=== PATIENT | male | born 1975 | race Caucasian/White ===

== ENCOUNTER 2018-10-15 22:14 | Inpatient (IN) | payer BC ==
[~2018-10-15 22:14] MED LIST: ISOVUE-370 76%-LOCM 1 ML ONE
[2018-10-15] MEDS ORDERED: HYDROcodone/Acetaminophen 10/325 mg Tablet ONE (23:11)
--- NOTE | 2018-10-15 23:44 | CT ---
EXAM: CT Pelvis W Con PROVIDED CLINICAL HISTORY: Left scrotal abscess. COMPARISON: None FINDINGS: There is prominent skin thickening and edema involving the left aspect of the scrotum. There is a pun ctate focus of gas seen in the region of the edematous changes of the left aspect of the scrotum.. Inflammatory changes are seen extending superiorly to the the base of the penis within the subcutaneo us fat as well as a superior to the level of the scrotum on the left.. There is suggestion of a small right hydrocele. No discrete fluid collection is identified. Urinary bladder has a normal CT appearance. The appendix is visualized and normal in caliber. No free fluid is seen in the pelvis. There is no evidence of lymphadenopathy. The osseous structures have a normal CT appearance. IMPRESSION: Infectious/inflammatory process involving the left aspect of the scrotum with scrotal thickening and edema. There is a punctate focus of gas seen in the region of the edema left aspect of the scrotum. Punctate focus of gas secondary to gas-forming organism cannot be entirely excluded. However, finding s were discussed with Dr. Jaramillo in the emergency department, and this focus of gas could potentially be iatrogenic as the tissues of the left aspect of the scrotum were anesthetized at [facility] which could potentially account for focus of gas. Clinical correlation suggested. The findings discussed Dr. Jaramillo in the emergency department on 10/15/2018 at 2338 hours.
[2018-10-16] MEDS ORDERED: Acetaminophen 325 MG TAB PO PRN ×2 (01:19→07:19)
[2018-10-16] MEDS ORDERED: HYDROcodone/Acetaminophen 5/325 mg Tablet PO PRN ×2 (01:19)
[2018-10-16] MEDS ORDERED: Sodium Chloride 0.9% 1,000 ML IV SCH (01:19)
[2018-10-16 01:40] VITALS: BMI 40.4
[2018-10-16] MEDS ORDERED: Piperacillin/Tazobactam 3.375 GM in Sodium Chloride 0.9% 100 ML IVPB SCH (05:00)
[2018-10-16] MEDS ORDERED: Vancomycin HCl 1 GM in Premix Bag 1 BAG IVPB SCH (05:00)
[2018-10-16] MEDS ORDERED: Ondansetron PF 4 MG/2 ML Vial IVP PRN (05:08)
[2018-10-16] MEDS ORDERED: Ondansetron ODT 4 MG TAB PO PRN (05:08)
[2018-10-16] MEDS ORDERED: Ketorolac Tromethamine 30 MG/ML VIAL IVP SCH (05:15)
[2018-10-16] MEDS: Vancomycin HCl 1.5 GM in Sodium Chloride 0.9% 250 ML 300 ML IVPB SCH ×3 (05:33→22:27)
[2018-10-16] MEDS ORDERED: Eucerin (Mineral Oil/Petrolatum,White) 30 gm Jar TOP PRN (07:19)
[2018-10-16] MEDS ORDERED: Sodium Chloride 0.65% Nasal 44 ML BOT EA NARE PRN (07:19)
[2018-10-16] MEDS ORDERED: Cepastat Lozenges 1 LOZ PO PRN (07:19)
[2018-10-16] MEDS ORDERED: Zolpidem Tartrate 5 MG TAB PO PRN (07:19)
[2018-10-16] MEDS ORDERED: Calcium Carbonate 500 MG ChewTAB PO PRN (07:19)
[2018-10-16] MEDS ORDERED: Loperamide HCl 2 MG CAP PO PRN (07:19)
[2018-10-16] MEDS ORDERED: Senokot S 8.6-50 MG TAB PO PRN (07:19)
[2018-10-16] MEDS ORDERED: Artificial Tears 18 DROP/0.9 ML EA EYE PRN (07:19)
[2018-10-16] MEDS ORDERED: Diabetic Tussin 200 MG/10 ML UDCUP PO PRN (07:19)
[2018-10-16] MEDS ORDERED: Bisacodyl 10 MG SUPP PR PRN (07:19)
[2018-10-16] MEDS ORDERED: hydrALAZINE 20 MG/ML VIAL SLOW IVP PRN (07:19)
[2018-10-16] MEDS ORDERED: Loratadine 10 MG TAB PO PRN (07:19)
[2018-10-16] MEDS: Enoxaparin Sodium 40 MG/0.4 ML SYRINGE SC SCH (08:31)
[2018-10-16] MEDS: busPIRone HCl 10 MG TAB PO SCH (08:32)
[2018-10-16] MEDS: CeleCOXIB 100 MG CAP PO SCH (08:32)
[2018-10-16] MEDS: FLUoxetine HCl 20 MG CAP PO SCH (08:32)
[2018-10-16] MEDS: Saccharomyces boulardii 250 MG CAP PO SCH (08:32)
[2018-10-16] MEDS: HYDROcodone/Acetaminophen 5/325 mg Tablet PO PRN ×2 (08:36→21:24)
[2018-10-16] MEDS ORDERED: CELECOXIB PO SCH (09:00)
[2018-10-16] MEDS ORDERED: busPIRone HCl 10 MG TAB PO SCH (09:00)
[2018-10-16] MEDS ORDERED: Famotidine 20 MG TAB PO SCH (09:00)
[2018-10-16] MEDS ORDERED: PHENTERMINE HCL PO SCH (09:00)
[2018-10-16] MEDS ORDERED: PHENTERMINE HCL 37.5 MG PO SCH (09:00)
--- NOTE | 2018-10-16 11:33 | HP ---
PRIMARY CARE PHYSICIAN: [facility] Call admission. REASON FOR ADMISSION: Scrotal cellulitis with abscess. HISTORY OF PRESENT ILLNESS: A 43-year-old male, who has underlying history of obesity, anxiety and depression, as well as gastroesophageal reflux disease, who was earlier evaluated at [facility] and subsequently, he was transferred to our emergency room for evaluation and treatment of scrotal cellulitis and abscess. This patient reports that because of his job, he gets perspiration in scrotal area and he gets intermittently itching in scrotal skin. He had scratched in past and subsequently, he noticed that in the scrotal area, couple of spot was getting hard and harder, and it was becoming more red and tender. He was also feeling chills and fever. These symptoms are going on for last 3 days, but he has itching in scrotal area for a period of time. He also gets itching from his dress, which he has to wear from [employer] in his abdomen area as well. At [facility], the patient was given trial of a needle aspiration of abscess, but without any success and subsequently, he was transferred to our emergency room. He had CT pelvis, which showed scrotal thickening and edema, and there was punctate focus of gas in the region of edema, which was attributed most likely from needle, which was inserted at [facility] without any drainage. At [facility], he was given Tylenol 1 g, vancomycin, Zosyn, and Toradol. Subsequently, he was sent to our emergency room for evaluation and treatment. The patient was meeting sepsis criteria with tachycardia, fever and leukocytosis. He had blood culture done. REVIEW OF SYSTEMS: CONSTITUTIONAL: Negative for weight loss or gain, ability to conduct usual activities. SKIN: Negative for rash, itching. EYES: Negative for double vision, pain. ENT/MOUTH: Negative for nose bleeding, neck stiffness, pain, tenderness. CARDIOVASCULAR: Negative for palpitations, dyspnea on exertion, orthopnea. RESPIRATORY: Negative for shortness of breath, wheezing, cough, hemoptysis, fever or night sweats. GASTROINTESTINAL: Negative for poor appetite, abdominal pain, heartburn, nausea, vomiting, constipation, or diarrhea. GENITOURINARY: Negative for urgency, frequency, dysuria, nocturia. MUSCULOSKELETAL: Negative for pain, swelling. NEUROLOGIC/PSYCHIATRIC: Negative for anxiety, depression. ALLERGY/IMMUNOLOGIC: Negative for skin rash, bleeding tendency. Please see my HPI for pertinent positives and negatives. All other review of systems reviewed and negative, except as mentioned in HPI. PAST MEDICAL HISTORY: Morbid obesity, osteoarthritis, sleep apnea, gastroesophageal reflux disease. PAST PSYCHIATRIC HISTORY: Anxiety and depression. PAST SURGICAL HISTORY: Left ankle surgery, cholecystectomy, tonsillectomy, appendicectomy, bilateral ear tube placement in childhood. SOCIAL HISTORY: The patient is by profession in [place]. He is . He does not have any tobacco, alcohol, or illicit drug abuse history. FAMILY HISTORY: No strong family history of premature coronary artery disease, stroke, or cancer. ALLERGIES: THE PATIENT IS ALLERGIC TO MORPHINE, WHICH GIVES HIVES. CURRENT HOME MEDICATION: 1. Celecoxib 200 mg daily. 2. Omeprazole 40 mg daily. 3. Buspirone 10 mg daily. 4. Prozac 20 mg daily. 5. Phentermine 37.5 mg daily. EMERGENCY ROOM COURSE: The patient is given Tylenol 1 g, vancomycin, Zosyn, and Toradol. PHYSICAL EXAMINATION: VITAL SIGNS: Currently, blood pressure 159/90, pulse 100, temperature 100.7, saturation 96% on room air, respiration 18. Weight 136 kg. GENERAL: The patient is currently alert, awake. No obvious acute distress. HEENT: Head; normocephalic, atraumatic. Eyes; pupils round, reactive to light. Extraocular muscle intact. ENT; oropharynx within normal limits. Moist mucous membranes. No oral lesion. No pharyngeal erythema. No exudate. NECK: Supple. No JVD. No thyromegaly. No carotid bruit. No jugular venous distention. LUNGS: Clear to auscultation without any rhonchi or rales. CARDIAC: S1, S2 regular. No murmur. No gallop. No rub. ABDOMEN: Morbid obesity present. Bowel sounds present. Nontender. Nondistended. No organomegaly. No mass. No suprapubic tenderness. BACK EXAMINATION: Unremarkable. No CVA tenderness. GENITOURINARY EXAMINATION: Left side of upper scrotum has at least 5 x 5 cm area of induration as well as the patient also has another about 2 x 2 cm induration in inguinal fold. This patient's testicle is swollen, erythematous, and tender. EXTREMITIES: Lower extremities, no edema. Good distal pulsation. Upper extremities, within normal limits. SKIN: No skin rash. HEMATOLOGICAL SYSTEM: No lymphadenopathy. NEUROLOGIC: Nonfocal examination. The patient does have mild folliculitis as well as erythema in suprapubic area, which is related with his belt. SIGNIFICANT LABORATORY DATA: CBC; WBC 11.7, hemoglobin 13.1, platelet 125 with left shift. BMP; sodium 137, potassium 4.0, chloride 105, carbon dioxide 23, anion gap 13, BUN 17, creatinine 1.01, glucose 111, and calcium 9.2. Lactic acid 1.1. LFT; AST 18, ALT 19, alkaline phosphatase 60, and albumin 4.0. CT pelvis showing infectious inflammatory process involving left aspect of scrotum with scrotal thickening and edema. Punctate focus of gas seen in the region of edema on the left aspect of the scrotum. IMPRESSION: 1. Sepsis secondary to soft tissue infection related with scrotal cellulitis and abscess. 2. Scrotal cellulitis with abscess in view of chronic itching in scrotal area from possibly allergic reaction. 3. Contact dermatitis. 4. Thrombocytopenia and leukocytosis, tachycardia related with sepsis. 5. Morbid obesity with body mass index of 40. 6. Anxiety and depression. 7. Gastroesophageal reflux disease. PLAN: 1. Admission to medical floor. Continue IV fluid as ordered. Continue empiric antibiotic therapy with vancomycin and Zosyn. Control pain with Toradol p.r.n. basis. Urology consultation for evaluation, less likely to be Dayo's gangrene, but we will get expert opinion. Scrotum elevation advised. His home medication reconciled. We will repeat labs tomorrow. Monitor Vanco trough level and renal function. 2. Deep venous thrombosis prophylaxis with Lovenox 40 mg subcu daily. 3. Gastrointestinal prophylaxis with Protonix 40 mg p.o. daily. CODE STATUS: The patient is full code. The patient's is surrogate decision maker. DISPOSITION PLAN: Based on clinical course, we are expecting the patient's stay in hospital more than 2 midnights. Plan of care discussed with the patient and his . Job ID: [id number]
[2018-10-16] MEDS: Piperacillin/Tazobactam 3.375 GM in Sodium Chloride 0.9% 100 ML IVPB SCH ×2 (11:38→17:33)
[2018-10-16] MEDS: Sodium Chloride 0.9% 1,000 ML IV SCH ×2 (11:39→21:24)
[2018-10-16] MEDS: Ketorolac Tromethamine 30 MG/ML VIAL IVP SCH ×2 (11:40→17:34)
[2018-10-16] MEDS: Mupirocin 2% Ointment 22 GM Tube TOP SCH (21:20)
--- NOTE | 2018-10-16 22:01 | CON ---
DATE OF CONSULTATION: 10/16/2018 REASON FOR CONSULTATION: Scrotal cellulitis with abscess. HISTORY OF PRESENT ILLNESS: Mr. 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 The patient has had troubles with sebaceous cyst on his chest, abdomen, and scrotum including the scrotal raphe area. On this admission, he presents with a left-sided hemiscrotal cellulitis and nonfluctuant apparent abscess. The patient reports he is having significant pain with this issue. He reports his previous abscesses have all opened up on its own and drained. He did have one in his chest that required a minor surgical procedure in a clinic. Other than this, he has not required hospitalization for it. The patient reports that he has had intermittent itching of his scrotal area. He has recently changed his uniform to a uniform, which does not breathe very well and noticed a spot was getting harder and harder on his left scrotal area with associated tenderness and redness. The patient developed chills and fever symptoms at home and presents with generalized systemic illness secondary to the symptoms. The patient's [place] 27817, which was elevated. He had ANC of 8900, which was also elevated. ALLERGIES: THE PATIENT REPORTS ALLERGY TO MORPHINE. MEDICATIONS: Please see the inpatient MAR for the patient's current medication list. PAST MEDICAL HISTORY: Recurrent sebaceous cyst as outlined above. PAST SURGICAL HISTORY: None other than in clinic, excision of a sebaceous cyst. FAMILY MEDICAL HISTORY: Noncontributory. SOCIAL HISTORY: The patient is a lifelong nonsmoker. Does not consume alcohol on a regular basis. He is employed as a [employer] and this required to wear uniform as part of his work. The patient reports recent uniform change causes less breathability. PHYSICAL EXAMINATION: VITAL SIGNS: Temperature on this admission has been afebrile with a current temperature of 97.7, pulse 63, respirations 20, O2 saturations 95% on room air, blood pressure is 111/65. HEAD, EYES, EARS, NOSE, AND THROAT: Extraocular movements are intact. Sclerae anicteric. Oropharynx is clear. NECK: Supple. LUNGS: Clear to auscultation bilaterally. CARDIAC: Regular rate and rhythm without murmur, rub, or gallop. ABDOMEN: Soft, obese, and nontender. SKIN SURVEY: On the abdomen shows multiple sebaceous cysts in various forms of healing. BACK: No tenderness on the back. GENITOURINARY: Phallus is circumcised and is without lesion. Scrotum is somewhat enlarged and slightly edematous. There is an indurated nodular area at the superior aspect of his left hemiscrotum. This is nonfluctuant. There are no punctate openings. I do see what is probably a previous needle access point or abscess point, which is probable cause of the patient's gas seen on the CT scan. Epididymal structures and testes bilaterally appear benign and nontender. Digital rectal examination was performed. The patient's prostate gland appears to be within normal limits at about 30 g. I am not able to access the upper most aspect due to the patient's large size and positioning. There is no evidence of extension of the abscess process to the rectal area. In the midline scrotal raphe area, there is a little bit of firmness or induration, uncertain if this is a new or old finding. EXTREMITIES: Appear to be otherwise within normal limits. LABORATORY FINDINGS: White count 91537 yesterday, ANC elevated at 8900, there is a left shift with 76% neutrophils, hemoglobin is 13.1, hematocrit of 38.5. Serum chemistries show glucose of 111. Other electrolytes otherwise within normal limits with a blood urea nitrogen of 17 and creatinine of 1.01. There do not appear to be any current microbiological specimens available for review. RADIOLOGIC STUDIES: A CT scan of the pelvis was performed. This demonstrates induration or inflammatory process in left hemiscrotum confined to the skin, not entering into the scrotal sac itself and this is most prominent at the superior aspect of the patient's left hemiscrotum. There is a small punctate amount of gas undoubtedly secondary to attempted needle drainage of the abscess. ASSESSMENT: 1. Left hemiscrotal probable infected sebaceous cyst with tissue infection noted. Note the patient's scrotal sac appears to have either chafed or lost most of its pubic hair. This can lead to disoriented hair follicles and lead to development of this type of presentation. I am recommending that he avoid chafing if possible and there are lubricants and adequate clothing to minimize this. Breathability needs to be considered as well. With the patient's current issue, there is an acute phase, which needs to be dealt with as well as the chronic issues that lead to the problem. At present time, his left hemiscrotum is not accessible from the surgical standpoint as there is no evidence of fluctuance or cavity to drain at this point. I would recommend reassessment of the patient later in the week when the antibiotics have had a chance to work. Based on previous experience with recurrent infected sebaceous cyst, I would believe methicillin-resistant Staphylococcus aureus or a gram-negative hafsa to be the most common organism. He appears to be on appropriate coverage with the Zosyn and vancomycin. As far as home care, Levaquin in combination with an appropriate oral equivalent of vancomycin would seem appropriate. The patient may need to undergo excision of the scrotal sebaceous cyst in the future especially if this forms actual abscess cavity. I discussed with the patient warning signs regarding Dayo gangrene, which could be blackened skin overlying the area. If this was to occur, the patient will need immediate surgical debridement. 2. Possible methicillin-resistant Staphylococcus aureus carriage. I would recommend swabbing the patient's nares and given the fact that he is already on vancomycin, would recommend even if this shows no methicillin-resistant Staphylococcus aureus, continue to treat the patient with mupirocin per nares until a full one week course has been administered. He should start on that today. The patient may follow up with my clinic if he is discharged from the hospital before I have seen him again. At the present time, he does not appear to require an acute surgical intervention. Job ID: [id number]
[2018-10-17] MEDS: Piperacillin/Tazobactam 3.375 GM in Sodium Chloride 0.9% 100 ML IVPB SCH ×5 (00:59→23:49)
[2018-10-17] MEDS: Ketorolac Tromethamine 30 MG/ML VIAL IVP SCH ×4 (01:00→18:49)
[2018-10-17 05:36] LABS: #Eosinphils 0.3 thou/uL (0.0-0.7); %Basophils 0.1 % (0.0-1.0); %Eosinophils 3.6 % (0.0-10.0); %Lymphocytes 21.5 % (21.0-51.0); %Monocytes 10.9 % (0.0-10.0); %Neutrophils 63.9 % (42.0-75.0); Hemoglobin 12.4 g/dL (14.0-18.0); Mean Corpuscular HGB CONC 33.3 g/dL (32.0-36.0); Mean Corpuscular Hemoglobin 30.3 pg (27.0-31.0); Mean Corpuscular Volume 90.9 fL (78.0-98.0); Mean Platelet Volume 9.9 fL (7.4-10.4); Platelet Count 108 thou/uL (130-400); RBC Distribution Width 11.6 % (11.5-14.5); Red Blood Cell (RBC) Count 4.11 mill/uL (4.70-6.10); White Blood Cell (WBC) Count 9.3 thou/uL (4.8-10.8)
[2018-10-17 05:54] LABS: Vancomycin, Trough 17.7 ug/mL
[2018-10-17 05:58] LABS: ALT (SGPT) 13 U/L (8-55); AST (SGOT) 11 U/L (5-34); Albumin 3.3 g/dL (3.5-5.0); Alkaline Phosphatase 52 U/L (40-150); Anion Gap 9 mmol/L (10-20); BUN (Urea Nitrogen) 15 mg/dL (8.9-20.6); Calc. Creatinine Clearance 172 mL/min (70-130); Calcium 8.5 mg/dL (7.8-10.44); Carbon Dioxide 25 mmol/L (22-29); Chloride 108 mmol/L (98-107); Estimated GFR-MDRD 77; Globulin 2.2 g/dL (2.4-3.5); Glucose 105 mg/dL (70-105); Potassium 3.9 mmol/L (3.5-5.1); Protein, Total 5.5 g/dL (6.0-8.3); Sodium 138 mmol/L (136-145)
[2018-10-17] MEDS: Vancomycin HCl 1.5 GM in Sodium Chloride 0.9% 250 ML 300 ML IVPB SCH ×3 (06:17→21:19)
[2018-10-17] MEDS: Sodium Chloride 0.9% 1,000 ML IV SCH (06:30)
[2018-10-17] MEDS: FLUoxetine HCl 20 MG CAP PO SCH (09:51)
[2018-10-17] MEDS: CeleCOXIB 100 MG CAP PO SCH (09:51)
[2018-10-17] MEDS: Saccharomyces boulardii 250 MG CAP PO SCH (09:51)
[2018-10-17] MEDS: busPIRone HCl 10 MG TAB PO SCH (09:51)
[2018-10-17] MEDS: Mupirocin 2% Ointment 22 GM Tube TOP SCH ×2 (09:52→20:29)
[2018-10-17] MEDS: Enoxaparin Sodium 40 MG/0.4 ML SYRINGE SC SCH (09:53)
--- NOTE | 2018-10-17 11:04 | PDOC.PN ---
- Subjective Encounter Start Date: 10/17/18 Encounter Start Time: 09:00 Patient seen and examined. No new complaints. No overnight events - Objective Resuscitation Status - Order Detail: 10/16/18 07:19 Resuscitation Status Routine Resuscitation Status: FULL: Full Resuscitation MAR Reviewed: Yes Vital Signs & Weight: Vital Signs (12 hours) Temp Pulse Resp BP Pulse Ox 10/17/18 07:46 98.3 F 62 20 132/75 97 10/17/18 04:00 97.6 F 89 18 148/98 H 98 10/17/18 00:00 97.5 F L 79 18 125/71 96 Weight Weight 298 lb 6.4 oz I&O: 10/16/18 10/17/18 10/18/18 06:59 06:59 06:59 Intake Total 955 960 Balance 955 960 Result Diagrams: 10/17/18 05:26 10/17/18 05:26 Phys Exam - Physical Examination Constitutional: NAD HEENT: PERRLA, moist MMs, sclera anicteric Neck: no JVD, supple Respiratory: no wheezing, no rales, no rhonchi Cardiovascular: RRR, no significant murmur, no rub Gastrointestinal: soft, non-tender, no distention, positive bowel sounds scrotal cellulitis and tender, induration+ Musculoskeletal: no edema, pulses present Neurological: non-focal, normal sensation, moves all 4 limbs Lymphatic: no nodes Psychiatric: normal affect, A&O x 3 Skin: no rash, normal turgor Dx/Plan (1) Cellulitis of scrotum Code(s): N49.2 - INFLAMMATORY DISORDERS OF SCROTUM Status: Acute (2) Sepsis Code(s): A41.9 - SEPSIS, UNSPECIFIED ORGANISM Status: Acute (3) Anxiety and depression Code(s): F41.9 - ANXIETY DISORDER, UNSPECIFIED; F32.9 - MAJOR DEPRESSIVE DISORDER, SINGLE EPISODE, UNSPECIFIED Status: Chronic (4) GERD (gastroesophageal reflux disease) Code(s): K21.9 - GASTRO-ESOPHAGEAL REFLUX DISEASE WITHOUT ESOPHAGITIS Status: Chronic (5) Morbid obesity with BMI of 40.0-44.9, adult Code(s): E66.01 - MORBID (SEVERE) OBESITY DUE TO EXCESS CALORIES; Z68.41 - BODY MASS INDEX (BMI) 40.0-44.9, ADULT Status: Chronic (6) ORTEGA (obstructive sleep apnea) Code(s): G47.33 - OBSTRUCTIVE SLEEP APNEA (ADULT) (PEDIATRIC) Status: Chronic - Plan cont current plan of care, continue antibiotics * continue vancomycin and zosyn * will control pain * medication reviewed as below * symptomatic treatment. * urology recommendation noted and appreciated * dc ivf Review of Systems - Review of Systems ENT: negative: Ear Pain, Ear Discharge, Nose Pain, Nose Discharge, Nose Congestion, Mouth Pain, Mouth Swelling, Throat Pain, Throat Swelling, Other Respiratory: negative: Cough, Dry, Shortness of Breath, Hemoptysis, SOB with Excertion, Pleuritic Pain, Sputum, Wheezing Cardiovascular: negative: chest pain, palpitations, orthopnea, paroxysmal nocturnal dyspnea, edema, light headedness, other Gastrointestinal: negative: Nausea, Vomiting, Abdominal Pain, Diarrhea, Constipation, Melena, Hematochezia, Other Genitourinary: negative: Dysuria, Frequency, Incontinence, Hematuria, Retention , Other Musculoskeletal: negative: Neck Pain, Shoulder Pain, Arm Pain, Back Pain, Hand Pain, Leg Pain, Foot Pain, Other Skin: negative: Rash, Lesions, Yariel, Bruising, Other - Medications/Allergies Allergies/Adverse Reactions: Allergies Allergy/AdvReac Type Severity Reaction Status Date / Time morphine Allergy Intermediate Hives Verified 10/16/18 02:07 Medications: Current Medications Acetaminophen (Tylenol) 650 mg PO Q4H PRN PRN Reason: Headache/Fever/Mild Pain (1-3) Last Admin: 10/17/18 05:05 Dose: 650 mg Hydrocodone Bitart/Acetaminophen (Lignum 5/325) 1 tab PO Q4H PRN PRN Reason: Moderate Pain (4-6) Last Admin: 10/16/18 21:24 Dose: 1 tab Artificial Tears (Tears Naturale) 2 drop EA EYE PRN PRN PRN Reason: Dry Eyes Bisacodyl (Dulcolax) 10 mg GA DAILYPRN PRN PRN Reason: Constipation Buspirone HCl (Buspar) 10 mg PO DAILY [facility] Last Admin: 10/17/18 09:51 Dose: 10 mg Calcium Carbonate (Tums) 1,000 mg PO Q4H PRN PRN Reason: Heartburn or Indigestion Celecoxib (Celebrex) 200 mg PO DAILY [facility] Last Admin: 10/17/18 09:51 Dose: 200 mg Enoxaparin Sodium (Lovenox) 40 mg SC 0900 [facility] Last Admin: 10/17/18 09:53 Dose: 40 mg Fluoxetine HCl (Prozac) 20 mg PO DAILY [facility] Last Admin: 10/17/18 09:51 Dose: 20 mg Guaifenesin (Robitussin Sf) 200 mg PO Q4H PRN PRN Reason: Cough Hydralazine HCl (Apresoline) 10 mg SLOW IVP Q4H PRN PRN Reason: SBP > 180 and HR < 70 Piperacillin Sod/Tazobactam (Sod 3.375 gm/ Sodium Chloride) 100 mls @ 200 mls/ hr IVPB Q6HR [facility] Last Admin: 10/17/18 05:06 Dose: 100 mls Vancomycin HCl 1.5 gm/ Sodium (Chloride) 300 mls @ 200 mls/hr IVPB Q8HR [facility] Last Admin: 10/17/18 06:17 Dose: 300 mls Sodium Chloride (Normal Saline 0.9%) 1,000 mls @ 100 mls/hr IV .Q10H [facility] Last Admin: 10/17/18 06:30 Dose: Not Given Ketorolac Tromethamine (Toradol) 15 mg IVP Q6HR [facility] Stop: 10/21/18 12:01 Last Admin: 10/17/18 06:14 Dose: 15 mg Loperamide HCl (Imodium) 2 mg PO PRN PRN PRN Reason: Diarrhea/Loose Stools Loratadine (Claritin) 10 mg PO DAILYPRN PRN PRN Reason: Sinus Symptoms Mineral Oil/White Petrolatum (Eucerin Cream) 0 gm TOP BIDPRN PRN PRN Reason: Dry Skin Miscellaneous Medication (Pharmacy To Dose) 1 each IVPB ONE PRN PRN Reason: Pharmacy to dose Stop: 10/26/18 04:57 Mupirocin (Bactroban 2% Ointment) 0 gm TOP BID [facility] Last Admin: 10/17/18 09:52 Dose: 1 gm Ondansetron HCl (Zofran Odt) 4 mg PO Q6H PRN PRN Reason: Nausea/Vomiting Ondansetron HCl (Zofran) 4 mg IVP Q6H PRN PRN Reason: Nausea/Vomiting Last Admin: 10/16/18 05:21 Dose: 4 mg Pantoprazole Sodium (Protonix) 40 mg PO DAILY [facility] Last Admin: 10/17/18 09:51 Dose: 40 mg [Phentermine Hcl] 37 (.5 Mg Cap) 0 each PO DAILY [facility] Saccharomyces Boulardii (Florastor) 250 mg PO DAILY [facility] Last Admin: 10/17/18 09:51 Dose: 250 mg Senna/Docusate Sodium (Senokot S) 2 tab PO BID PRN PRN Reason: Constipation Sodium Chloride (Flush - Normal Saline) 10 ml IVF Q12HR [facility] Last Admin: 10/17/18 09:52 Dose: Not Given Sodium Chloride (Flush - Normal Saline) 10 ml IVF PRN PRN PRN Reason: Saline Flush Sodium Chloride ([place] Nasal [place] 0.65%) 0 ml EA NARE QIDPRN PRN PRN Reason: Nasal Congestion Throat Lozenges (Cepastat Lozenges) 1 eunice PO Q2H PRN PRN Reason: Sore Throat Zolpidem Tartrate (Ambien) 5 mg PO HSPRN PRN PRN Reason: Insomnia
--- NOTE | 2018-10-17 21:40 | CON ---
DATE OF CONSULTATION: REASON FOR CONSULTATION: Scrotal cellulitis with abscess. BRIEF HISTORY: Mr. 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 The patient has had troubles with sebaceous cyst on his chest, abdomen, and scrotum including the scrotal area. On the current admission, the patient was admitted with a left-sided upper hemiscrotal cellulitis and nonfluctuant apparent abscess. The patient has been on Zosyn and vancomycin for treatment and feels somewhat better today. He still has a little bit of pain. He does not have a fluctuant mass at the present time. The patient has been showering with chlorhexidine and is on the mupirocin protocol . ALLERGIES: THE PATIENT HAS AN ALLERGY TO MORPHINE. MEDICATIONS: Please see the inpatient MAR. PHYSICAL EXAMINATION: VITAL SIGNS: The patient is afebrile with current temperature of 98.3, pulse 62, respirations 20, O2 saturation on room air is 97%, and blood pressure is 132/75. HEAD, EYES, EARS, NOSE, AND THROAT: Extraocular movements are intact. Sclerae anicteric. Oropharynx is clear. NECK: Supple. LUNGS: Clear to auscultation bilaterally. CARDIAC: Regular rate and rhythm without murmur, rub, or gallop. ABDOMEN: Soft, obese, and nontender. GENITOURINARY: Phallus is without external lesion. Urethral meatus appears adequate. Scrotum shows less edema than present on yesterday's examination. On the upper left hemiscrotum, there is remaining induration which is becoming more defined. There is no evidence of fluctuance at the present time. No drainage. Digital rectal examination was not repeated today. Please see yesterday's notes. ASSESSMENT: Left hemiscrotal abscess without fluctuance. The patient will continue on IV antibiotic therapy. We will reassess his condition tomorrow. There is no evidence of necrosis of the overlying skin in the area of induration. Pain level is much improved from yesterday. Over 35 minutes of consultation and assessment time was spent in evaluation and assessment of this patient today. Job ID: [id number]
[2018-10-18] MEDS: Ketorolac Tromethamine 30 MG/ML VIAL IVP SCH ×4 (01:14→12:06)
[2018-10-18] MEDS: Piperacillin/Tazobactam 3.375 GM in Sodium Chloride 0.9% 100 ML IVPB SCH ×3 (05:12→12:06)
[2018-10-18] MEDS: Vancomycin HCl 1.5 GM in Sodium Chloride 0.9% 250 ML 300 ML IVPB SCH (06:17)
[2018-10-18] MEDS: Enoxaparin Sodium 40 MG/0.4 ML SYRINGE SC SCH (09:12)
[2018-10-18] MEDS: busPIRone HCl 10 MG TAB PO SCH (09:13)
[2018-10-18] MEDS: Saccharomyces boulardii 250 MG CAP PO SCH (09:13)
[2018-10-18] MEDS: CeleCOXIB 100 MG CAP PO SCH (09:13)
[2018-10-18] MEDS: FLUoxetine HCl 20 MG CAP PO SCH (09:13)
[2018-10-18] MEDS: Mupirocin 2% Ointment 22 GM Tube TOP SCH (09:14)
--- NOTE | 2018-10-18 11:14 | DIS ---
DATE OF ADMISSION: 10/16/2018 DATE OF DISCHARGE: 10/18/2018 PRIMARY CARE PHYSICIAN: [facility] Call admission. DISCHARGE DISPOSITION: Home. PRIMARY DISCHARGE DIAGNOSES: 1. Sepsis, resolved. 2. Cellulitis of scrotum. SECONDARY DISCHARGE DIAGNOSES: Morbid obesity with BMI 40, obstructive sleep apnea, gastroesophageal reflux disease, anxiety and depression. PRIMARY PROCEDURE/OPERATION: None. RADIOLOGICAL INVESTIGATIONS: Pelvis CT scan showed left hemiscrotum cellulitis. SIGNIFICANT LABORATORY DATA: WBC 9.3, hemoglobin 12.4, platelet 108. Sodium 138, potassium 3.9, creatinine 1.05. CRP 9.4. Culture from nasal grew Staph aureus. DISCHARGE MEDICATIONS: New medication; 1. Augmentin 875 mg twice daily for 10 days. 2. Doxycycline 100 mg p.o. b.i.d. for 10 days. 3. Mupirocin topical application as directed. 4. Florastor 250 mg p.o. daily for 10 days. Continue his following medication; 1. Buspirone 10 mg daily. 2. Celecoxib 200 mg daily p.r.n. 3. Prozac 20 mg daily. 4. Omeprazole 40 mg daily. 5. Phentermine 37.5 mg p.o. daily p.r.n. CONTRAINDICATION: None. CODE STATUS: Full code. INPATIENT LEAD FRONT DESK AGENT: Dr. Terence Toscano was consulted while in hospital. ALLERGIES: MORPHINE. DISCHARGE PLAN: Posthospital, the patient will follow up with primary care physician and Dr. Toscano as advised within a week. HOSPITAL COURSE: A 43-year-old male with above-mentioned medical problem, who was admitted by me. Please see my HPI for further details. This patient was having itching in his scrotal area, and subsequently, he started developing swelling, which was gradually increased with significant tenderness and erythema. He was having hard induration in scrotal wall on the left side. He went to [facility], where they tried to put a needle and drain, but it was unsuccessful. The patient was meeting sepsis criteria. He was given broad-spectrum antibiotic therapy with vancomycin and Zosyn. He was also given IV fluid and his pain was controlled. His sepsis resolved. He is afebrile and his pain is under control. We also consulted Urology and they were not thinking that this patient needs any surgical process and he was not having any Dayo gangrene. This patient was evaluated by them and they recommended outpatient followup. On discharge, we are changing to Augmentin and doxycycline. He will continue outpatient p.r.n. basis of pain medication with ibuprofen and Tylenol. Necessary skin hygiene was discussed with the patient today. He has a nasal carrier of Staph aureus and that is why Bactroban was prescribed while in hospital as well as on discharge. Plan of care discussed with the patient in detail today. I have seen and examined the patient at bedside today. His examination is unchanged. His scrotal swelling is reduced, but improving and tenderness is reduced and improving. Job ID: [id number]
[2018-10-18 12:20] VITALS: BP 127/76; TEMP 98.4
--- NOTE | 2018-10-18 12:37 | PDOC.PN ---
- Subjective Encounter Start Date: 10/18/18 Encounter Start Time: 10:30 Patient seen and examined. No new complaints. No overnight events - Objective Resuscitation Status - Order Detail: 10/16/18 07:19 Resuscitation Status Routine Resuscitation Status: FULL: Full Resuscitation MAR Reviewed: Yes Vital Signs & Weight: Vital Signs (12 hours) Temp Pulse Resp BP Pulse Ox 10/18/18 12:00 98.4 F 66 20 127/76 96 10/18/18 09:07 97 10/18/18 07:44 98.2 F 70 20 136/77 97 Weight Weight 298 lb 6.4 oz I&O: 10/17/18 10/18/18 10/19/18 06:59 06:59 06:59 Intake Total 960 465 Balance 960 465 Result Diagrams: 10/17/18 05:26 10/17/18 05:26 Phys Exam - Physical Examination Constitutional: NAD HEENT: PERRLA, moist MMs, sclera anicteric Neck: no JVD, supple Respiratory: no wheezing, no rales, no rhonchi Cardiovascular: RRR, no significant murmur, no rub Gastrointestinal: soft, non-tender, no distention, positive bowel sounds scortal celullitis with swelling reduced Musculoskeletal: no edema, pulses present Neurological: non-focal, normal sensation, moves all 4 limbs Lymphatic: no nodes Psychiatric: normal affect, A&O x 3 Skin: no rash, normal turgor Dx/Plan (1) Cellulitis of scrotum Code(s): N49.2 - INFLAMMATORY DISORDERS OF SCROTUM Status: Acute (2) Sepsis Code(s): A41.9 - SEPSIS, UNSPECIFIED ORGANISM Status: Acute (3) Anxiety and depression Code(s): F41.9 - ANXIETY DISORDER, UNSPECIFIED; F32.9 - MAJOR DEPRESSIVE DISORDER, SINGLE EPISODE, UNSPECIFIED Status: Chronic (4) GERD (gastroesophageal reflux disease) Code(s): K21.9 - GASTRO-ESOPHAGEAL REFLUX DISEASE WITHOUT ESOPHAGITIS Status: Chronic (5) Morbid obesity with BMI of 40.0-44.9, adult Code(s): E66.01 - MORBID (SEVERE) OBESITY DUE TO EXCESS CALORIES; Z68.41 - BODY MASS INDEX (BMI) 40.0-44.9, ADULT Status: Chronic (6) ORTEGA (obstructive sleep apnea) Code(s): G47.33 - OBSTRUCTIVE SLEEP APNEA (ADULT) (PEDIATRIC) Status: Chronic - Plan * . Review of Systems - Review of Systems ENT: negative: Ear Pain, Ear Discharge, Nose Pain, Nose Discharge, Nose Congestion, Mouth Pain, Mouth Swelling, Throat Pain, Throat Swelling, Other Respiratory: negative: Cough, Dry, Shortness of Breath, Hemoptysis, SOB with Excertion, Pleuritic Pain, Sputum, Wheezing Cardiovascular: negative: chest pain, palpitations, orthopnea, paroxysmal nocturnal dyspnea, edema, light headedness, other Gastrointestinal: negative: Nausea, Vomiting, Abdominal Pain, Diarrhea, Constipation, Melena, Hematochezia, Other Genitourinary: negative: Dysuria, Frequency, Incontinence, Hematuria, Retention , Other Musculoskeletal: negative: Neck Pain, Shoulder Pain, Arm Pain, Back Pain, Hand Pain, Leg Pain, Foot Pain, Other - Medications/Allergies Allergies/Adverse Reactions: Allergies Allergy/AdvReac Type Severity Reaction Status Date / Time morphine Allergy Intermediate Hives Verified 10/16/18 02:07 Medications: Current Medications Acetaminophen (Tylenol) 650 mg PO Q4H PRN PRN Reason: Headache/Fever/Mild Pain (1-3) Last Admin: 10/17/18 05:05 Dose: 650 mg Hydrocodone Bitart/Acetaminophen ([place] 5/325) 1 tab PO Q4H PRN PRN Reason: Moderate Pain (4-6) Last Admin: 10/16/18 21:24 Dose: 1 tab Amoxicillin/Clavulanate Potassium (Augmentin) 875 mg PO Q12HR [facility] Artificial Tears (Tears Naturale) 2 drop EA EYE PRN PRN PRN Reason: Dry Eyes Bisacodyl (Dulcolax) [address] DAILYPRN PRN PRN Reason: Constipation Buspirone HCl (Buspar) 10 mg PO DAILY [facility] Last Admin: 10/18/18 09:13 Dose: 10 mg Calcium Carbonate (Tums) 1,000 mg PO Q4H PRN PRN Reason: Heartburn or Indigestion Celecoxib (Celebrex) 200 mg PO DAILY [facility] Last Admin: 10/18/18 09:13 Dose: 200 mg Doxycycline Hyclate (Vibramycin) 100 mg PO BID [facility] Enoxaparin Sodium (Lovenox) 40 mg SC 0900 [facility] Last Admin: 10/18/18 09:12 Dose: 40 mg Fluoxetine HCl (Prozac) 20 mg PO DAILY [facility] Last Admin: 10/18/18 09:13 Dose: 20 mg Guaifenesin (Robitussin Sf) 200 mg PO Q4H PRN PRN Reason: Cough Hydralazine HCl (Apresoline) 10 mg SLOW IVP Q4H PRN PRN Reason: SBP > 180 and HR < 70 Loperamide HCl (Imodium) 2 mg PO PRN PRN PRN Reason: Diarrhea/Loose Stools Loratadine (Claritin) 10 mg PO DAILYPRN PRN PRN Reason: Sinus Symptoms Mineral Oil/White Petrolatum (Eucerin Cream) 0 gm TOP BIDPRN PRN PRN Reason: Dry Skin Miscellaneous Medication (Pharmacy To Dose) 1 each IVPB ONE PRN PRN Reason: Pharmacy to dose Stop: 10/26/18 04:57 Mupirocin (Bactroban 2% Ointment) 0 gm TOP BID [facility] Last Admin: 10/18/18 09:14 Dose: 1 gm Ondansetron HCl (Zofran Odt) 4 mg PO Q6H PRN PRN Reason: Nausea/Vomiting Ondansetron HCl (Zofran) 4 mg IVP Q6H PRN PRN Reason: Nausea/Vomiting Last Admin: 10/16/18 05:21 Dose: 4 mg Pantoprazole Sodium (Protonix) 40 mg PO DAILY [facility] Last Admin: 10/18/18 09:13 Dose: 40 mg [Phentermine Hcl] 37 (.5 Mg Cap) 0 each PO DAILY [facility] Saccharomyces Boulardii (Florastor) 250 mg PO DAILY [facility] Last Admin: 10/18/18 09:13 Dose: 250 mg Senna/Docusate Sodium (Senokot S) 2 tab PO BID PRN PRN Reason: Constipation Sodium Chloride (Flush - Normal Saline) 10 ml IVF Q12HR [facility] Last Admin: 10/18/18 09:14 Dose: Not Given Sodium Chloride (Flush - Normal Saline) 10 ml IVF PRN PRN PRN Reason: Saline Flush Sodium Chloride ([place] Nasal [place] 0.65%) 0 ml EA NARE QIDPRN PRN PRN Reason: Nasal Congestion Throat Lozenges (Cepastat Lozenges) 1 eunice PO Q2H PRN PRN Reason: Sore Throat Zolpidem Tartrate (Ambien) 5 mg PO HSPRN PRN PRN Reason: Insomnia
[2018-10-18] MEDS ORDERED: Doxycycline 100 MG CAP PO SCH (21:00)
[2018-10-18] MEDS ORDERED: Amoxicillin/Potassium Clav 875 MG TAB PO SCH (21:00)
== END 2018-10-18 14:46 | disposition home or self-care (01) | DRG 872 ==
LOC: ERS 22:14 → T4-A 10-16 01:16
PROVIDERS: ADMIT Internal Medicine; ATTEND Internal Medicine
DX: A41.9 Sepsis, unspecified organism (principal); Z68.41 Body mass index [BMI] 40.0-44.9, adult; N49.2 Inflammatory disorders of scrotum; E66.01 Morbid (severe) obesity due to excess calories; F41.9 Anxiety disorder, unspecified; F32.9 Major depressive disorder, single episode, unspecified; K21.9 Gastro-esophageal reflux disease without esophagitis; G47.33 Obstructive sleep apnea (adult) (pediatric); L25.9 Unspecified contact dermatitis, unspecified cause; D69.6 Thrombocytopenia, unspecified; M19.90 Unspecified osteoarthritis, unspecified site; Z90.49 Acquired absence of other specified parts of digestive tract; Z88.5 Allergy status to narcotic agent; Z79.899 Other long term (current) drug therapy
CPT/HCPCS: 36415; 72193; 80053; 80202; 85025; 86140; 87070; 87077; 87186; J1650; J1885; J2405; J2543; J3370; J3490; J7050; Q9966

== ENCOUNTER 2018-10-21 12:22 | Day surgery (SDC) | payer BC ==
--- NOTE | 2018-10-21 13:59 | RAD ---
CHEST 2 VIEWS: Date: 10/21/18 HISTORY: Preoperative evaluation. FINDINGS: Mild linear stranding in the anterior chest, evidence for chronic change. Heart size is normal. The l ungs are clear. IMPRESSION: No acute intrathoracic disease. POS: C
[2018-10-21] MEDS ORDERED: Bupivacaine/Epinephrine 0.25% 30 ML VIAL ONE (16:05)
[2018-10-21] MEDS ORDERED: Fentanyl 100 MCG/2 ML VIAL ONE ×2 (16:34→18:40)
[2018-10-21] MEDS ORDERED: Morphine 4 MG/ML VIAL ONE (16:35)
[2018-10-21] MEDS ORDERED: Meperidine HCl/PF 25 MG/ML VIAL ONE (18:11)
[2018-10-21] MEDS ORDERED: HYDROcodone/Acetaminophen 5/325 mg Tablet ONE (19:48)
--- NOTE | 2018-10-22 01:30 | OP ---
DATE OF PROCEDURE: 10/21/2018 PREPROCEDURE DIAGNOSES: 1. Left hemiscrotal abscess, N49.2. 2. Scrotal cellulitis, L03.90. 3. Scrotal raphe abscess, N49.2. POSTPROCEDURE DIAGNOSES: 1. Left hemiscrotal abscess, N49.2. 2. Scrotal cellulitis, L03.90. 3. Scrotal raphe abscess, N49.2. PROBLEM LIST: 1. Cellulitis, L03.90 2. Infected LEFT hemiscrotal sebaceous cyst, L72.3, L08.9 3. Scrotal Raphe sebaceous cyst, L72.3 4. Recent SIRS (systemic inflammatory response syndrome) (HCC), R65. PROCEDURES PERFORMED: 1. Debridement of necrotizing scrotal wall abscess, 03583. 2. Multilayer closure of upper aspect of incision, 5 cm. [id number] 3. Excision of scrotal raphe perineal infected sebaceous cyst with multilayer closure of the scrotal raphe incision, 3 cm. [id number] BRIEF HISTORY: Terence Henao is a very pleasant, 43-year-old [facility] with a history of scrotal and generalized body acne and abscesses. He presented to the emergency department of [facility] approximately a week ago with fever and generalized symptoms of sepsis. He was placed on IV antibiotics and eventually transitioned to oral antibiotics. He was found to have a scrotal cellulitis on the left side. This was never fluctuant or focal. He did have some drainage from the upper aspect of the incision and this was deemed not fluctuant enough that point to actually excise. The patient went home on antibiotic therapy, also had a scrotal raphe sebaceous cyst which had undergone repeated drainage at home. He opted to have that removed as well in this operation. DESCRIPTION OF PROCEDURE: The patient was appropriately identified in the preoperative holding area and taken to the operative suite, placed in the supine position. General anesthesia was established. The patient was repositioned after general anesthesia in the supine lithotomy position and prepped and draped in usual sterile fashion. Chlorhexidine prep was utilized. The patient was carefully evaluated and the upper aspect of the indurated portion of the patient's incision extended onto the mons pubis. We outlined a proposed incision line on the skin as well as a possible extension if necessary. The patient underwent excision of the fixed and focal scrotal wall abscess, which was full thickness down to the level of the dartos. We excised that using combination of electrocautery and sharp dissection. We did not find extensive extension into the mons pubis itself except for about 1 to 2 cm. We completely excised the abscess and sent that for permanent section. The patient has been on antibiotics for a week now. We did not obtain any cultures during the procedure. The scrotal raphe sebaceous cyst was also excised, again using knife and electrocautery. The patient then had multilayer closure performed in both locations in the scrotal raphe. We used 2-0 Vicryl suture in a multilayer fashion followed by 2-0 chromic gut at the skin level. Horizontal mattress sutures were used on the skin level. The left hemiscrotal abscess extended to the dartos layer. We excised the cyst entirely and then reapproximated the dartos using 2-0 Vicryl suture in interrupted fashion. In addition, brought the skin layers together deeply using interrupted 2-0 PDS suture. We then did partial closure of the upper aspect of the incision with 2-0 Vicryl suture. We then packed the lower aspect of the incision using iodoform gauze after copious irrigation with peroxide. Local anesthetic consisting of a total of 30 mL of 0.25% Marcaine with epinephrine was instilled along the incisions. The patient was awakened and extubated in the operative suite. No Tidwell catheter was placed during the procedure. COMPLICATIONS: None. ESTIMATED BLOOD LOSS: Less than 50 mL. DRAINS AND TUBES: The patient has iodoform packing to the left hemiscrotum. Tolerated the procedure well, was transferred to the postop recovery in good condition. Job ID: [id number] [facility]
--- NOTE | 2018-10-22 02:39 | SS ---
DATE OF ADMISSION: 10/21/2018 DATE OF DISCHARGE: 10/21/2018 REASON FOR HOSPITAL ADMISSION: 1. Left hemiscrotal abscess, N49.2. 2. Scrotal raphae abscess, N49.2. 3. Scrotal cellulitis, L03.90. DISCHARGE DIAGNOSES: 1. Left hemiscrotal abscess, N49.2. 2. Scrotal raphae abscess, N49.2. 3. Scrotal cellulitis, L03.90. PROCEDURES PERFORMED DURING HOSPITALIZATION: 1. Debridement of necrotizing scrotal wall abscess, 88734. 2. Multilayered approach closure of upper aspect of left hemiscrotal incision, 5 cm. 3. Excision of scrotal raphae abscess. 4. Multilayer closure of scrotal raphae incision, 3 cm. BRIEF HISTORY: Mr. 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 The patient desired excision of that as well as a chronically draining scrotal raphae abscess and presented for the treatment of that today. Please see the operative note for additional operative details. The patient was admitted to the hospital and underwent procedures as outlined in the operative note. He was discharged home in good condition on 10/21/2018. DISCHARGE MEDICATIONS: 1. Augmentin 875 one tablet every 12 hours. 2. Buspirone 10 mg p.o. daily. 3. Celebrex 1 tablet daily 200 mg. 4. Doxycycline 100 mg every 12 hours. 5. Fluoxetine 20 mg p.o. daily. 6. Mupirocin 2%, Bactroban ointment to the nares twice daily. 7. Omeprazole 40 mg p.o. daily. 8. Phentermine 37.5 mg capsules taken daily. 9. Saccharomyces boulardii, Florastor 250 mg p.o. daily. FOLLOWUP INSTRUCTIONS: The patient will follow up with [facility] in about 2 weeks' time for a wound check. Job ID: [id number]
--- NOTE | 2018-10-22 13:54 | EKG ---
Test Reason : PREOP Blood Pressure : / mmHG Vent. Rate : 063 BPM Atrial Rate : 063 BPM P-R Int : 184 ms QRS Dur : 096 ms QT Int : 436 ms P-R-T Axes : 042 008 025 degrees QTc Int : 446 ms Normal sinus rhythm Normal ECG No previous ECGs available Confirmed by DR. Louis SANTILLAN ([id number]) on 10/22/2018 1:54:09 PM Referred By: ÓSCAR Confirmed By:DR. Louis SANTILLAN
== END 2018-10-21 20:20 | disposition home or self-care (01) ==
LOC: SDC 12:22
PROVIDERS: ATTEND Urology
PROC: 0VB5XZZ Excision of Scrotum, External Approach (ICD-10-PCS; principal; 2018-10-21)
DX: N49.2 Inflammatory disorders of scrotum (principal); L72.3 Sebaceous cyst; L08.9 Local infection of the skin and subcutaneous tissue, unspecified; R65.10 Systemic inflammatory response syndrome (SIRS) of non-infectious origin without acute organ dysfunction; Z79.899 Other long term (current) drug therapy
CPT/HCPCS: 71046; 93005; 93010; J0690; J2175; J2270; J3010